=== PATIENT | female | born 1960 ===

== ENCOUNTER 2017-12-05 10:44 | Emergency (ER) | payer SELFPAY ==
[2017-12-05] MEDS ORDERED: Dexamethasone 4 mg/1 ml IM STA (11:37)
--- NOTE | 2017-12-05 11:37 | ED PDOC ---
HPI: CCC, URI, Sore Throat Time Seen by Provider: 12/05/17 11:21 Chief Complaint (Nursing): ENT Problem Chief Complaint (Provider): sore throat History Per: Patient Additional Complaint(s): 57-year-old female presents with sore throat for about one month. Patient states that throat pain has worsened in the last 2 days prompting ED visit. Tolerating liquids and solids but has pain when swallowing. She denies fever or chills. She is also had dry cough. PMD: [facility] Past Medical History Reviewed: Historical Data, Nursing Documentation, Vital Signs Vital Signs: Last Vital Signs Temp 98.1 F 12/05/17 11:01 Pulse 84 12/05/17 11:01 Resp 16 12/05/17 11:01 BP 142/78 12/05/17 11:01 Pulse Ox 100 12/05/17 12:36 - Medical History PMH: HTN, Hypercholesterolemia (Dyslipidemia) - Surgical History Surgical History: (x 2) - Family History Family History: States: No Known Family Hx - Living Arrangements Living Arrangements: With Family - Social History Current smoker - smoking cessation education provided: No Alcohol: None Drugs: Denies - Home Medications Home Medications: Ambulatory Orders Medication Instructions Recorded Ferrous Sulfate [Feosol] 325 mg PO BID 06/02/15 Multivitamin [One Daily] 1 tab PO DAILY 06/02/15 Ciprofloxacin 500 mg PO BID #12 ml 06/05/15 Famotidine [Pepcid] 20 mg PO BID #30 tab 06/05/15 Ibuprofen 400 mg PO Q6 PRN #20 tablet 06/05/15 Phosphate Enema [Fleet Enema 135 133 ml RC PRN PRN #2 nma 06/10/16 Ml] Amoxicillin/Clavulanate [Augmentin 1 tab PO BID #14 tab 12/05/17 875 MG-125 MG] Ibuprofen [Motrin] 600 mg PO Q6 PRN #15 tab 12/05/17 - Allergies Allergies/Adverse Reactions: Allergies Allergy/AdvReac Type Severity Reaction Status Date / Time No Known Allergies Allergy Verified 06/02/15 10:06 Review of Systems ROS Statement: Except As Marked, All Systems Reviewed And Found Negative Constitutional: Negative for: Fever, Chills ENT: Positive for: Throat Pain, Throat Swelling Cardiovascular: Negative for: Chest Pain Respiratory: Positive for: Cough (dry) Gastrointestinal: Negative for: Nausea, Vomiting Physical Exam - Reviewed Nursing Documentation Reviewed: Yes Vital Signs Reviewed: Yes - Physical Exam Appears: Positive for: Well, Non-toxic, No Acute Distress Skin: Positive for: Normal Color. Negative for: Rash Eye Exam: Positive for: Normal appearance ENT: Positive for: TM Is/Are (normal bilaterally), Pharyngeal Erythema, Tonsillar Swelling. Negative for: Nasal Congestion, Tonsillar Exudate Cardiovascular/Chest: Positive for: Regular Rate, Rhythm Respiratory: Positive for: Normal Breath Sounds. Negative for: Wheezing, Respiratory Distress Extremity: Positive for: Normal ROM Neurologic/Psych: Positive for: Alert, Oriented - ECG O2 Sat by Pulse Oximetry: 100 Pulse Ox Interpretation: Normal Medical Decision Making Medical Decision Makin-year-old female with sore throat. Plan: Rapid strep Throat culture PO motrin IM decadron 8 mg IM Rapid strep is negative, culture sent. Prescriptions given for Augmentin and Motrin. Patient was referred to clinic for follow up. Disposition - Clinical Impression Clinical Impression: Tonsillitis - Patient ED Disposition Is Patient to be Admitted: No Counseled Patient/Family Regarding: Studies Performed, Diagnosis, Need For Followup, Rx Given - Disposition Referrals: [facility] [Outside] Disposition: Routine/Home Disposition Time: 12:36 Condition: STABLE Additional Instructions: Take prescription meds as directed. Follow-up with clinic in 2-3 days. Prescriptions: Amoxicillin/Clavulanate [Augmentin 875 MG-125 MG] 1 tab PO BID #14 tab Ibuprofen [Motrin] 600 mg PO Q6 PRN #15 tab PRN Reason: Pain, Moderate (4-7) Instructions: Sore Throat, Adult (DC) Forms: [employer] (Syriac) Print Language: [id number]
[2017-12-05 13:30] VITALS: BP 128/78; PULSE 78; RESP 19; TEMP 98; O2SAT 98
== END 2017-12-05 13:30 | disposition home or self-care (01) ==
LOC: H.ER 10:44
DX: J03.90 Acute tonsillitis, unspecified (principal); E78.00 Pure hypercholesterolemia, unspecified; I10 Essential (primary) hypertension
CPT/HCPCS: 87070; 87430; 96372; 99282; J1100